=== PATIENT | female | born 2005 | race Caucasian/White ===

== ENCOUNTER 2023-05-10 17:59 | Emergency (ER) | payer OTHER ==
[2023-05-10] MEDS ORDERED: Proparacaine 0.5% Opth 15 ML BOT ONE (19:27)
== END 2023-05-10 20:50 | disposition home or self-care (01) ==
LOC: ERS 17:59
DX: H57.12 Ocular pain, left eye (principal); I10 Essential (primary) hypertension
CPT/HCPCS: 99283